=== PATIENT | male | born 2005 | race Two or more races ===

== ENCOUNTER → 2025-01-11 | Emergency (ER) | payer OTHER ==
[~2025-01-11] VITALS: Ht 165.1 cm; Wt 59.0 kg
[~2025-01-11] MED LIST: AMOX1TAB5 PO; CEFTRIAXONE SODIUM 1,000 MG VIAL IM STA; CEFTRIAXONE SODIUM 1,000 MG VIAL ONE; LIDOCAINE HCL 1% 10ML VIAL IJ STA; LIDOCAINE HCL/MPF 1% 5ML VIAL IJ ONE
[2025-01-11 20:25] VITALS: BP 103/72; O2SAT 99
== END | disposition home or self-care (01) ==
LOC: ER 19:00 → EMR PED 19:55
DX: S61.411A Laceration without foreign body of right hand, initial encounter (principal); W45.8XXA Other foreign body or object entering through skin, initial encounter; Y93.89 Activity, other specified; Y92.828 Other wilderness area as the place of occurrence of the external cause; Y99.8 Other external cause status